=== PATIENT | male | born 1980 | race Hispanic/Latino ===

== ENCOUNTER 2018-06-09 14:17 | Inpatient (IN) | payer BC ==
[~2018-06-09 14:17] MED LIST: Iopamidol 370 76% 100 ML VIAL ONE
[2018-06-09] MEDS ORDERED: Morphine 4 MG/ML Carpuject ONE (14:46)
[2018-06-09 15:01] LABS: Hemoglobin 16.6 g/dL (14.0-18.0); Mean Corpuscular HGB CONC 35.8 g/dL (32.0-36.0); Mean Corpuscular Hemoglobin 30.7 pg (27.0-31.0); Mean Corpuscular Volume 85.6 fL (78.0-98.0); Mean Platelet Volume 8.6 fL (7.4-10.4); Platelet Count 293 thou/uL (130-400); RBC Distribution Width 11.5 % (11.5-14.5); Red Blood Cell (RBC) Count 5.41 mill/uL (4.70-6.10); White Blood Cell (WBC) Count 21.7 thou/uL (4.8-10.8)
[2018-06-09 15:10] LABS: ALT (SGPT) 38 U/L (8-55); AST (SGOT) 22 U/L (5-34); Albumin 4.2 g/dL (3.5-5.0); Alkaline Phosphatase 57 U/L (40-150); Anion Gap 17 mmol/L (10-20); BUN (Urea Nitrogen) 18 mg/dL (8.9-20.6); Bilirubin, Total 0.4 mg/dL (0.2-1.2); CK (CPK) 153 U/L (30-200); CKMB 1.6 ng/mL (0-6.6); Calc. Creatinine Clearance 0 mL/min (70-130); Calcium 9.4 mg/dL (7.8-10.44); Carbon Dioxide 21 mmol/L (22-29); Chloride 104 mmol/L (98-107); Estimated GFR-MDRD 67; Globulin 3.7 g/dL (2.4-3.5); Glucose 132 mg/dL (70-105); Lipase 15 U/L (8-78); Potassium 3.6 mmol/L (3.5-5.1); Protein, Total 7.9 g/dL (6.0-8.3); Sodium 138 mmol/L (136-145); Troponin I Less than 0.010 ng/mL (< 0.028)
[2018-06-09 15:26] LABS: Band 3 % (5-11); Eosinophils 1 % (0-10); Lymphocytes 15 % (21-51); MDiff Complete? YES; Monocytes 6 % (0-10); Neutrophil 74 % (42-75); PLT Morphology Comment Appears Adequate; RBC Morphology Normal
[2018-06-09] MEDS ORDERED: Sodium Chloride 0.9% 0 ML ONE ×2 (15:35→15:37)
[2018-06-09] MEDS ORDERED: cefTRIAXone\\ROCEPHIN 2 GM VIAL ONE (15:35)
--- NOTE | 2018-06-09 15:37 | CT ---
CT ANGIO CHEST WITH CONTRAST: Multiple axial tomograms were obtained through the chest with IV enhancement and a pulmonary angio ph ase following protocol. Multiplanar reconstruction and 3D post processing. INDICATION: Chest pain. Shortness of breath and dyspnea. FINDINGS: There is motion artifact. Suboptimal opacification of the pulmonary arteries. The proximal pulmonar y arteries are adequately opacified and there is no evidence of proximal pulmonary embolus to the seg mental level. Mediastinum unremarkable. The lungs show patchy infiltrate and/or atelectasis in the left lung base with small left effusion. This may be inflammatory and suggest short-term followup. Images through the upper abdomen show evidence of diffuse fatty infiltration of the liver. IMPRESSION: 1. Suboptimal pulmonary angio study; however, no evidence of proximal pulmonary embolus. 2. Patchy infiltrate in the left lung base with small left effusion. POS: [facility]
[2018-06-09 15:49] LABS: Bilirubin Small (Negative); Blood, Urine Negative (Negative); Clarity Clear (Clear); Glucose, Urine (Dipstick) Negative (Negative); Leukocyte Negative (Negative); Nitrite Negative (Negative); Protein, Urine (Dipstick) 30 mg/dL (Neg-Trace); Specific Gravity, Urine 1.015 (1.005-1.030); Urobilinogen 0.2 mg/dL (0.2-1.0)
[2018-06-09 15:57] LABS: Bacteria/HPF 2+ HPF (None Seen); RBC/HPF None Seen HPF (0-3); Squamous Epithelial None Seen HPF (0-3); WBC/HPF 0-3 HPF (0-3)
[2018-06-09] MEDS ORDERED: Azithromycin 500 MG VIAL ONE (16:34)
[2018-06-09] MEDS ORDERED: Milk Of Magnesia 30 ML UDCUP PO PRN (17:23)
[2018-06-09] MEDS ORDERED: Famotidine 20 MG TAB PO PRN (17:23)
[2018-06-09] MEDS ORDERED: Bisacodyl 5 MG TAB PO PRN (17:23)
[2018-06-09] MEDS ORDERED: hydrOXYzine Pamoate 25 mg Capsule PO PRN (17:23)
[2018-06-09] MEDS ORDERED: Docusate 100 MG CAP PO PRN (17:23)
[2018-06-09] MEDS ORDERED: Promethazine 25 MG TAB PO PRN (17:23)
[2018-06-09] MEDS ORDERED: Ondansetron HCl/PF 4 MG/2 ML Vial IVP PRN (17:23)
[2018-06-09] MEDS ORDERED: Benzonatate 100 MG CAP PO PRN (17:23)
[2018-06-09 18:14] VITALS: BMI 45.1
[2018-06-09 18:43] LABS: Troponin I Less than 0.010 ng/mL (< 0.028)
[2018-06-09] MEDS: traMADol HCl 50 MG TAB PO PRN (18:50)
[2018-06-09] MEDS: NS 0.9% w/ 20 MEQ KCL 1,000 ML/1,000 ML BAG IV SCH (18:51)
[2018-06-09] MEDS: Enoxaparin Sodium 40 MG/0.4 ML SYRINGE SC SCH (19:47)
[2018-06-09] MEDS: Acetaminophen 500 MG TAB PO PRN (19:47)
[2018-06-09] MEDS: Diabetic Tussin 200 MG/10 ML UDCUP PO PRN (19:48)
[2018-06-09 21:50] LABS: Troponin I Less than 0.010 ng/mL (< 0.028)
[2018-06-10] MEDS: NS 0.9% w/ 20 MEQ KCL 1,000 ML/1,000 ML BAG IV SCH ×4 (00:07→23:39)
--- NOTE | 2018-06-10 02:56 | HP ---
DATE OF ADMISSION: 06/09/2018 PRIMARY CARE PHYSICIAN: Dr. Mina Noriega. CHIEF COMPLAINT: Shortness of breath. HISTORY OF PRESENT ILLNESS: The patient states that approximately the last 4 days, he has had a left-sided pleuritic chest pain, over the last 2 days has developed some semblance of worsening shortness of breath. No formal fevers. He started feeling ill and presented to the emergency department, found to be tachycardic, tachypneic, and had marginal oxygen saturations 91% in the emergency room. PE was ruled out following positive D-dimer; however, his chest x-ray was suggestive of pneumonia and pleural effusion of the left lower lobe. Patient denies any sputum production. Patient is being worked up on an outpatient basis for obstructive sleep apnea. He is not currently sleeping with any device or oxygen. PAST MEDICAL HISTORY: He has no other past medical history other than obesity. PAST SURGICAL HISTORY: No pertinent surgical history. SOCIAL HISTORY: Lives with spouse who he is a nurse practitioner in [facility]. Patient denies tobacco or alcohol use. PHYSICAL EXAMINATION: VITAL SIGNS: Temperature of 100.4, pulse of 112, oxygen saturation 98% on nasal cannula 2 liters, respiratory rate of 18, blood pressure 131/84. LABORATORY WORK: White blood cell count 21.7, hemoglobin of 16.6, platelet count of 293. D-dimer 1.66. Troponins x3 less than 0.01. BNP of 31. Albumin of 4.2, AST of 22, ALT of 38. Lactic acid of 1.3, glucose of 132, creatinine of 1.26, estimated GFR of 67, potassium of 3.6, sodium of 138. Urinalysis with small ketones, small protein. Blood and urine cultures pending. CTA without any acute cardiopulmonary events. Infiltrate of left lower lung with small left pleural effusion present. Suboptimal study secondary to body habitus. GENERAL: The patient is alert and oriented, no acute distress. HEENT: Normocephalic, atraumatic. Extraocular movements are intact. Nasal canula in place. Oral mucosa is somewhat dry. NECK: Supple. HEART: Tachycardic. LUNGS: Patient is in no respiratory distress with nasal cannula oxygen. ABDOMEN: Protuberant, soft, nontender. Bronchial breath sounds are clear. Bases diminished secondary to body habitus of the lungs bilaterally. EXTREMITIES: Lower extremities without cyanosis or edema. No calf swelling or pain. NEUROLOGIC: The patient is alert and oriented x3, no focal deficits. Speech is normal. ASSESSMENT AND PLAN: The patient is meeting sepsis criteria secondary to community-acquired pneumonia. The patient covered on Rocephin and azithromycin supported by oxygen therapy, given IV fluids. We will trend the patient's vital signs as well as white blood cell count. Continue on IV fluids for rehydration regarding possible acute kidney injury, dehydration, currently on 150 normal saline with 20 mEq of KCl, covering with prophylactic Lovenox at this point in time. If the patient is not improving over the next 24-48 hours, consider repeat CTA as lower bases were not fully properly evaluated; however, no major saddle embolus. No signs of DVT on exam at this point in time. We will follow up cultures when available. We will discuss case with Dr. Mina Noriega take over care on the week. ALEXA
[2018-06-10 05:35] LABS: #Eosinphils 0.1 thou/uL (0.0-0.7); #Lymphocytes 1.8 thou/uL (1.20-3.40); #Monocytes 0.7 thou/uL (0.11-0.59); #Neutrophils 14.1 thou/uL (1.40-6.50); %Eosinophils 0.7 % (0.0-10.0); %Lymphocytes 10.7 % (21.0-51.0); %Monocytes 4.1 % (0.0-10.0); %Neutrophils 84.4 % (42.0-75.0); Hemoglobin 15.5 g/dL (14.0-18.0); Mean Corpuscular HGB CONC 32.7 g/dL (32.0-36.0); Mean Corpuscular Hemoglobin 30.3 pg (27.0-31.0); Mean Corpuscular Volume 92.6 fL (78.0-98.0); Mean Platelet Volume 7.9 fL (7.4-10.4); Platelet Count 291 thou/uL (130-400); RBC Distribution Width 12.4 % (11.5-14.5); Red Blood Cell (RBC) Count 5.12 mill/uL (4.70-6.10); White Blood Cell (WBC) Count 16.7 thou/uL (4.8-10.8)
[2018-06-10 05:38] LABS: ALT (SGPT) 36 U/L (8-55); AST (SGOT) 18 U/L (5-34); Albumin 4.2 g/dL (3.5-5.0); Alkaline Phosphatase 53 U/L (40-150); Anion Gap 12 mmol/L (10-20); BUN (Urea Nitrogen) 9 mg/dL (8.9-20.6); Bilirubin, Total 0.6 mg/dL (0.2-1.2); Calc. Creatinine Clearance 254 mL/min (70-130); Calcium 9.3 mg/dL (7.8-10.44); Carbon Dioxide 23 mmol/L (22-29); Chloride 104 mmol/L (98-107); Estimated GFR-MDRD Greater than 90; Globulin 3.7 g/dL (2.4-3.5); Glucose 172 mg/dL (70-105); Potassium 4.4 mmol/L (3.5-5.1); Protein, Total 7.9 g/dL (6.0-8.3); Sodium 135 mmol/L (136-145)
--- NOTE | 2018-06-10 08:11 | PRG ---
DATE OF SERVICE: 06/10/2018 SUBJECTIVE: The patient is feeling much better this morning. His cough is much improved. OBJECTIVE: VITAL SIGNS: Temperature 98.4, high of 100.7; pulse 96, respirations 28; pulse ox 93 on 2.5 liters O 2. HEART: Regular rate and rhythm. LUNGS: With left basilar rales. ABDOMEN: Soft. EXTREMITIES: No edema. LABORATORY DATA: White count 16.7, down from 21.7, H and H 15 and 45, platelets 291. Electrolytes n ormal. Creatinine 0.81, BUN 9, blood sugar 172, troponin less than 0.010 x3. ASSESSMENT: 1. Left lower lobe pneumonia. 2. Dehydration. 3. Morbid obesity. 4. Snoring disorder. PLAN: 1. Recheck CBC and BMP in the a.m. 2. Possible discharge in the a.m. 3. Discussed diet and exercise. 4. Scheduled for an outpatient sleep apnea test on 06/22. 5. Recheck also a hemoglobin A1c in the a.m.
[2018-06-10] MEDS: traMADol HCl 50 MG TAB PO PRN (13:26)
[2018-06-10] MEDS: cefTRIAXone\\ROCEPHIN 2 GM in Sodium Chloride 0.9% 100 ML IVPB SCH (16:17)
[2018-06-10] MEDS: Azithromycin 500 MG in Sodium Chloride 0.9% 250 ML 250 ML IVPB SCH (17:02)
[2018-06-10] MEDS: Ibuprofen 800 MG TAB PO PRN (17:47)
[2018-06-10] MEDS: Enoxaparin Sodium 40 MG/0.4 ML SYRINGE SC SCH (22:07)
[2018-06-10] MEDS: Diabetic Tussin 200 MG/10 ML UDCUP PO PRN (22:11)
[2018-06-11] MEDS: Ibuprofen 800 MG TAB PO PRN ×3 (01:53→20:38)
[2018-06-11 05:36] LABS: Hemoglobin A1c 6.2 % (4.0-6.0)
[2018-06-11 05:37] LABS: #Eosinphils 0.3 thou/uL (0.0-0.7); #Monocytes 1.4 thou/uL (0.11-0.59); #Neutrophils 10.3 thou/uL (1.40-6.50); %Basophils 0.3 % (0.0-1.0); %Lymphocytes 19.9 % (21.0-51.0); %Monocytes 9.1 % (0.0-10.0); %Neutrophils 68.8 % (42.0-75.0); Hemoglobin 15.1 g/dL (14.0-18.0); Mean Corpuscular Hemoglobin 30.3 pg (27.0-31.0); Mean Corpuscular Volume 91.9 fL (78.0-98.0); Mean Platelet Volume 7.5 fL (7.4-10.4); Platelet Count 297 thou/uL (130-400); RBC Distribution Width 12.4 % (11.5-14.5); Red Blood Cell (RBC) Count 4.98 mill/uL (4.70-6.10); White Blood Cell (WBC) Count 14.9 thou/uL (4.8-10.8)
[2018-06-11 05:52] LABS: Anion Gap 11 mmol/L (10-20); BUN (Urea Nitrogen) 8 mg/dL (8.9-20.6); Calc. Creatinine Clearance 281 mL/min (70-130); Calcium 8.9 mg/dL (7.8-10.44); Carbon Dioxide 22 mmol/L (22-29); Chloride 105 mmol/L (98-107); Estimated GFR-MDRD Greater than 90; Glucose 155 mg/dL (70-105); Potassium 3.9 mmol/L (3.5-5.1); Sodium 134 mmol/L (136-145)
[2018-06-11] MEDS: NS 0.9% w/ 20 MEQ KCL 1,000 ML/1,000 ML BAG IV SCH ×3 (06:15→20:42)
[2018-06-11] MEDS: traMADol HCl 50 MG TAB PO PRN ×2 (07:27→16:12)
--- NOTE | 2018-06-11 07:44 | PRG ---
DATE OF SERVICE: 06/11/2018. SUBJECTIVE: The patient still with moderate cough and left-sided pleuritic chest pain. OBJECTIVE: VITAL SIGNS: Temperature 98.4, pulse 95, respiration 22, pulse ox 95, blood pressure 119/81, pulse o x this morning 93. HEART: Regular rate and rhythm. LUNGS: Relatively clear. ABDOMEN: Soft, still with prominent cough. LABORATORY DATA: White count 14.9, H&H is 15 and 45. Sodium 134, potassium 3.9, creatinine 0.74, bl ood sugar 172, 155. Troponin I less than 0.010 x3. A1c 6.2. ASSESSMENT: 1. Left lower lobe pneumonia, still with prominent cough with a pulse ox at 93 this morning. 2. Dehydration, resolving. 3. Morbid obesity. 4. Snoring disorder. PLAN: 1. Consider monitoring another 24 hours. 2. Discussed weight loss. 3. Followup next week for an outpatient sleep apnea test.
--- NOTE | 2018-06-11 08:45 | PQF ---
CLINICAL DOCUMENTATION IMPROVEMENT CLARIFICATION FORM: ICD-10 Updated PLEASE DO AN ADDENDUM TO THE PROGRESS NOTE WITH ANY DOCUMENTATION UPDATES OR ADDITIONS AND CARRY THROUGH TO DC SUMMARY. THANK YOU. DATE: 06/11/18 ATTN: Dr. Noriega Please exercise your independent, professional judgment in responding to the clarification form. Clinical indicators are provided on the bottom of this form for your review Please check appropriate box(s) to clarify if the following diagnosis has been ruled in or ruled out: MEETING SEPSIS CRITERIA SECONDARY TO COMMUNITY ACQUIRED PNEUMONIA [ ] Ruled in diagnosis [ ] Continue to treat [ ] Resolved [ ] Ruled out diagnosis [ ] Cannot rule out diagnosis [ ] Other diagnosis [ ] Unable to determine In addition, please specify: Present on Admission (POA): [ ] Yes [ ] No [ ] Unable to determine For continuity of documentation, please document condition throughout progress notes and discharge summary. Thank You. CLINICAL INDICATORS - SIGNS / SYMPTOMS / LABS ER RECORD: BP 122/86. PULSE 111-122, RESP 20-24, TEMP 99.8 O2 SAT 2L OXYGEN DX: SEPSIS HYPOXIA, L LOWER LOBE PNA, L PLEURAL EFFUSION H&P: WHITE BLOOD CELL COUNT 21.7 PT IS MEETING SEPSIS CRITERIA SECONDARY TO COMMUNITY ACQUIRED PNEUMONIA RISKS: PN 06/10: MORBID OBESITY; L LOWER LOBE PNEUMONIA. TREATMENT: CPOE 06/09: NS W/ 20 MEQ KCL IV 150MLS/HR CPOE 06/09: ROCEPHIN 2 GM IV CPOE 06/09: ZITHROMAX IV Thank you, Radha (This form is maintained as a part of the permanent medical record) 2014 [employer] All Rights Reserved Radha Vallecillo RN, BSN [email or web address] Office: [phone] [facility] CENTERAnder
[2018-06-11] MEDS: metFORMIN 500 MG TAB PO SCH ×2 (09:20→16:12)
--- NOTE | 2018-06-11 09:20 | RAD ---
PA AND LATERAL CHEST: History: Pneumonia. FINDINGS: The heart size is enlarged. There is a left lower lobe consolidation with accompanying parapneumonic effusion. The right lung is clear. IMPRESSION: Left basilar pneumonia with parapneumonic effusion. POS: OFF
[2018-06-11] MEDS: Diabetic Tussin 200 MG/10 ML UDCUP PO PRN ×2 (09:21→16:18)
[2018-06-11] MEDS: cefTRIAXone\\ROCEPHIN 2 GM in Sodium Chloride 0.9% 100 ML IVPB SCH (16:10)
[2018-06-11] MEDS: Azithromycin 500 MG in Sodium Chloride 0.9% 250 ML 250 ML IVPB SCH (17:17)
[2018-06-11] MEDS: Enoxaparin Sodium 40 MG/0.4 ML SYRINGE SC SCH (20:38)
[2018-06-11] MEDS ORDERED: Phenergan/Codeine 10-6.25mg/5ml UDCUP PO PRN (21:31)
[2018-06-11] MEDS: Acetaminophen 500 MG TAB PO PRN (21:38)
[2018-06-11] MEDS ORDERED: Sodium Chloride 0.9% 1,000 ML IV SCH (21:45)
[2018-06-11] MEDS: Albuterol Sulfate 2.5 mg/3 ml Neb NEB SCH (22:08)
[2018-06-12] MEDS: Albuterol Sulfate 2.5 mg/3 ml Neb NEB SCH ×6 (01:51→21:55)
[2018-06-12] MEDS: NS 0.9% w/ 20 MEQ KCL 1,000 ML/1,000 ML BAG IV SCH ×3 (06:31→17:18)
[2018-06-12] MEDS: Ibuprofen 800 MG TAB PO PRN ×2 (06:31→13:33)
[2018-06-12 06:36] LABS: Band 2 % (5-11); Hemoglobin 15.7 g/dL (14.0-18.0); Lymphocytes 7 % (21-51); MDiff Complete? YES; Mean Corpuscular HGB CONC 33.3 g/dL (32.0-36.0); Mean Corpuscular Volume 93.1 fL (78.0-98.0); Mean Platelet Volume 7.5 fL (7.4-10.4); Monocytes 3 % (0-10); Neutrophil 88 % (42-75); PLT Morphology Comment Appears Adequate; Platelet Count 329 thou/uL (130-400); RBC Distribution Width 12.4 % (11.5-14.5); RBC Morphology Normal; Red Blood Cell (RBC) Count 5.06 mill/uL (4.70-6.10); White Blood Cell (WBC) Count 17.6 thou/uL (4.8-10.8)
--- NOTE | 2018-06-12 07:18 | PRG ---
DATE OF SERVICE: 06/12/2018 SUBJECTIVE: The patient has had a dramatic improvement overnight. Yesterday, he was febrile with sh ortness of breath, chills and was feeling bad. He was tachycardic in the 130s. Last night he was gi nicole a liter bolus of normal saline and AutoPap was started. The patient states that this was the bes t night of sleep he has had in years. This morning he is awake, alert, feeling much better. OBJECTIVE: VITAL SIGNS: Temperature 97.2, pulse 86, respiration 21, pulse ox 94, blood pressure 127/74. HEART: Regular rate and rhythm. LUNGS: Decreased breath sounds on the left base. ABDOMEN: Soft. EXTREMITIES: No edema. LABORATORY: White count 17.6, H&H 15 and 47, 88 segs, 2 bands, platelets 329. Chest x-ray; large left pleural effusion with consolidation. ASSESSMENT: 1. Left lower lobe pneumonia with effusion, a dramatic improvement overnight. 2. Dehydration, resolving. 3. Morbid obesity. 4. Snoring disorder with marked improvement with AutoPap. PLAN: 1. Pulmonary consult this morning. 2. Discussed weight loss again. 3. We will consult Social Service to determine whether an AutoPap can be obtained for an outpatient basis, until he obtains a sleep study scheduled for next week.
[2018-06-12] MEDS: metFORMIN 500 MG TAB PO SCH (08:42)
--- NOTE | 2018-06-12 14:55 | EKG ---
Test Reason : ER INDICATION Blood Pressure : / mmHG Vent. Rate : 123 BPM Atrial Rate : 123 BPM P-R Int : 134 ms QRS Dur : 088 ms QT Int : 316 ms P-R-T Axes : 034 017 -26 degrees QTc Int : 452 ms Sinus tachycardia Minimal voltage criteria for LVH, may be normal variant Possible Inferior infarct , age undetermined Abnormal ECG Confirmed by BACILIO LIZ, ELLIS Rome ([id number]), image editor PAT BOWER ([id number]) on 06/12/2018 2:55:14 PM Referred By: Confirmed By:ELLIS RIBERA MD
[2018-06-12] MEDS ORDERED: Lidocaine 1% (PF) 30 ML VIAL ONE (16:22)
[2018-06-12 17:05] LABS: Fluid, pH - Pleural Fld 7.25
[2018-06-12] MEDS: cefTRIAXone\\ROCEPHIN 2 GM in Sodium Chloride 0.9% 100 ML IVPB SCH (17:16)
[2018-06-12] MEDS: Azithromycin 500 MG in Sodium Chloride 0.9% 250 ML 250 ML IVPB SCH (17:17)
[2018-06-12 17:22] LABS: Body Fluid Source THORACENTESIS FLD; Clarity Cloudy/Turbid (Clear)
[2018-06-12 17:23] LABS: BF Color Yellow; RBC Background Count 0.001; RBC Count-Automated 24000 /cumm; Tube # 1; WBC/NonHematic-Auto 9730 /cumm
[2018-06-12] MEDS: traMADol HCl 50 MG TAB PO PRN (17:24)
[2018-06-12 18:02] LABS: BF Segmented Neutrophils 50 %; Cell Count Non Hematic 24 %; Lymphocytes 26 %
--- NOTE | 2018-06-12 18:43 | CON ---
DATE OF CONSULTATION: 06/12/2018 SERVICE: Pulmonary Medicine. REASON FOR CONSULTATION: Pleural effusion. HISTORY OF PRESENT ILLNESS: The patient is a 38-year-old male with past medical history significant for essentially nothing. He has got morbid obesity. He probably has sleep apnea. He has got an outpatient polysomnogram and is currently pending. 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 He was much more active than he typically is. He thought he pulled some muscles and had some myalgia and malaise for a day or two. He was treating it with intermittent doses of nonsteroidal anti-inflammatory drugs. After 2 days, this persisted and he started having an abrupt onset of pleuritic chest discomfort. He presented to the Emergency Department where CT PE protocol was done. It ruled out a large pulmonary embolism, but there was clearly an infiltrate in the left base. He denies any current fevers, chills, nausea or vomiting. The pain has actually improved a little bit. His breathing has improved since he has been in the hospital. His inflammatory profile is also settled down. That being said, repeat chest x-ray was performed demonstrating a pleural effusion. PAST MEDICAL HISTORY: 1. Morbid obesity. 2. Obstructive sleep apnea, suspected. PAST SURGICAL HISTORY: None. SOCIAL HISTORY: Lives with his spouse who works in our emergency department. Denies any alcohol, tobacco or illicit drug use. He has no exposure to chemicals, dust asbestos or tuberculosis. FAMILY HISTORY: Noncontributory. REVIEW OF SYSTEMS: General, head, ears, eyes, nose, throat, cardiovascular, respiratory, GI, , musculoskeletal, neurologic and skin is negative except as mentioned in the in the HPI. ALLERGIES: No known drug allergies. MEDICATIONS: List of inpatient medications was reviewed. No specific updates were made at this time. PHYSICAL EXAMINATION: VITAL SIGNS: Afebrile currently with T-max of 99.4. His last temperature was at 8:00 p.m. yesterday evening at 101 degrees, pulse 100, blood pressure 144/74 , respirations 18, saturation 92% on room air. GENERAL: The patient is awake and alert, in no apparent distress. LUNGS: Decent air entry in the right lung. Left base has decreased air entry. Crackles are present in the left base. No crackles are present in the right. No rhonchi or wheezing appreciated. HEART: Normal rate, regular. ABDOMEN: Soft, nontender, nondistended. Bowel sounds are positive. MUSCULOSKELETAL: No cyanosis or clubbing. There is no pitting in the bilateral lower extremities. NEUROLOGIC: Grossly nonfocal. LABORATORY DATA: WBC 17.6, hemoglobin 15.7, platelets 329,000. D-dimer 1.66, hemoglobin A1c 6.2, BNP below the assay limit of 10. Basic metabolic profile and liver function studies are otherwise unremarkable. Urinalysis is negative. Blood cultures x2 remain unremarkable. IMAGING DATA: 1. CTA of the chest demonstrates a very small left-sided pleural effusion and very small infiltrate in the left base. 2. Chest x-ray demonstrates significant interval increase in size of the effusion and infiltrate at the left base. Otherwise, there is no acute cardiopulmonary abnormality identified. ASSESSMENT: 1. Community-acquired pneumonia. 2. Pleural effusion. 3. Morbid obesity. 4. Obstructive sleep apnea, suspected. DISCUSSION AND PLAN: We will proceed with a bedside ultrasound. If we see a nice pocket of fluid, thoracentesis will be performed. It will help us to identify the underlying characteristics of this effusion. Hopefully, we are able to drain the entire thing. If we can, a surgical consultation may be indicated. 70 minutes have been devoted to this patient in various activities. I personally reviewed all imaging studies and laboratory data noted within this document. For fifty percent of this time, I was interacting with the patient at the bedside or coordinating care with the care team. For the remainder of the time I was immediately available to the patient in the hospital unit. ALEXA
[2018-06-12] MEDS: Enoxaparin Sodium 40 MG/0.4 ML SYRINGE SC SCH (21:43)
[2018-06-13] MEDS: Albuterol Sulfate 2.5 mg/3 ml Neb NEB SCH ×6 (02:25→21:57)
--- NOTE | 2018-06-13 08:40 | PRG ---
DATE OF SERVICE: 06/13/2018 SUBJECTIVE: The patient continues to improve significantly. He is breathing much easier, sleeping m uch better with the AutoPap. OBJECTIVE: VITAL SIGNS: Temperature 99.0, pulse 87, respirations 22, pulse ox 92, blood pressure 155/94. HEART: Regular rate and rhythm. LUNGS: Increased left basilar breath sounds with rales. Much improved from the past few days. ABDOMEN: Soft, nontender. EXTREMITIES: No edema. LABORATORY: White count 7.6, H&H 15 and 47, status post thoracentesis with 9700 WBCs, 24,000 RBCs, 5 0% segs, 26% lymphs. ASSESSMENT: 1. Left lower lobe pneumonia with effusion. 2. Sepsis with community-acquired pneumonia. 3. Dehydration, resolved. 4. Morbid obesity. 5. Snoring disorder. PLAN: 1. Postop day #1, status post thoracentesis. Cultures pending. 2. The patient is doing significantly better. Desiring to go home. 3. We will discuss with Social Service for possibility of obtaining an AutoPap prior to discharge.
[2018-06-13] MEDS: Ibuprofen 800 MG TAB PO PRN ×2 (09:01→22:09)
--- NOTE | 2018-06-13 09:17 | PRG ---
DATE OF SERVICE: 06/13/2018 SERVICE: Pulmonary Medicine INTERVAL HISTORY: The patient is actually doing pretty well from a respiratory standpoint. He daniel nues to have a little bit of pleuritic chest discomfort, but it is manageable. He denies any shortne ss of breath, nausea or vomiting. Otherwise, there were no events overnight. PHYSICAL EXAMINATION: VITAL SIGNS: Afebrile, pulse 99, blood pressure 129/87, respirations 18, saturation 96% on room air. GENERAL: The patient is awake, alert, no apparent distress. LUNGS: Excellent air entry. There is no prolonged expiratory phase. Rhonchi and crackles are prese nt on the left. There is no wheezing. HEART: Normal rate, regular. ABDOMEN: Soft, nontender, nondistended. Bowel sounds are positive. MUSCULOSKELETAL: No cyanosis or clubbing. No pitting in the bilateral lower extremities. NEUROLOGIC: Grossly nonfocal. LABORATORY: Body fluids are consistent with a neutrophilic exudate. PH is not terribly low, though it is reduced, and glucose falls within the normal limits. IMAGING: Chest x-ray demonstrates near resolution of the left-sided pleural effusion. There has bee n no significant recurrence of the effusion. There is a dense infiltrate in the left base. Overall, it is improved. ASSESSMENT: 1. Community-acquired pneumonia, severe. 2. Uncomplicated parapneumonic pleural effusion. 3. Morbid obesity. 4. Obstructive sleep apnea, suspected DISCUSSION AND PLAN: The patient is doing absolutely wonderful from a respiratory standpoint. We wi ll repeat laboratories tomorrow morning. If the white blood cell count is falling off, and he remain s afebrile, we can convert him over to p.o. Augmentin. I would like to complete a 2 week course of t hat antibiotic which will require him to have about 9 more days on discharge. Pulmonary will continu e to follow along while he remains in house. Ultimately, he will need to follow up in the clinic in 4-6 weeks in the outpatient setting with a repeat chest x-ray to verify the infiltrate has resolved. If it has not, additional investigation may need to be considered. If on the other hand, he has inc reasing fever, chills, or breathing discomfort moving forward, he has been told to notify his physici ans sooner. I will arrange for followup with him in the clinic with me.
--- NOTE | 2018-06-13 10:18 | OP ---
DATE OF SERVICE: 06/12/2018 SERVICE: Pulmonary Medicine PROCEDURE: Left-sided pleural drainage with catheter insertion under ultrasound guidance. CONSENT: Risks and benefits of the procedure were explained to the patient. All questions were answ ered and alternative options explained. STAFF PHYSICIAN: Tony Lao M.D. MEDICATIONS USED: Lidocaine 1% without epinephrine, a total quantity 15 mL. PREOPERATIVE DIAGNOSES: 1. Community-acquired pneumonia. 2. Pleural effusion. POSTPROCEDURE DIAGNOSES: 1. Community-acquired pneumonia. 2. Pleural effusion. DESCRIPTION OF PROCEDURE: A timeout was performed by the procedure team and patient. The patient wa s positively identified using name and date of . The procedure site was marked. Vital sign mon itoring was accomplished by noninvasive hemodynamic monitoring, pulse oximetry, and telemetry. In th e seated position, left posterior hemithorax was examined using ultrasound probe. The diaphragm and pleural fluid were easily identified. The skin was prepped and draped in usual sterile fashion and a nesthetized with 1% lidocaine without epinephrine. A finder needle was inserted in the pleural space with return of cloudy kumar fluid. A pleural drainage catheter was then inserted in the same locati on and a total quantity of 800 mL of the same fluid was withdrawn by syringe pump technique. A sampl e was sent for analysis. Evacuation of fluid was terminated because the fluid stopped coming. At th e end of the procedure, estimated pleural pressures, measured by manometry, was -16 cm of pleural flu id. The intact catheter was withdrawn on exhalation and sterile dressing was applied. The patient h ad stable vitals throughout the entire procedure. ESTIMATED BLOOD LOSS: 2 mL. COMPLICATIONS: None.
--- NOTE | 2018-06-13 10:52 | RAD ---
CHEST TWO VIEWS: History: Thoracentesis. Comparison: Chest radiograph 06-03-18. FINDINGS: Mild size decrease of left layering pleural effusion. There is atelectasis left lower lobe. No pneumo thorax. Cardiac silhouette is similar. IMPRESSION: Mild size decrease left layering pleural effusion. POS: [facility]
[2018-06-13] MEDS: Azithromycin 500 MG in Sodium Chloride 0.9% 250 ML 250 ML IVPB SCH (16:53)
[2018-06-13] MEDS: cefTRIAXone\\ROCEPHIN 2 GM in Sodium Chloride 0.9% 100 ML IVPB SCH (16:53)
[2018-06-13] MEDS: Enoxaparin Sodium 40 MG/0.4 ML SYRINGE SC SCH (20:56)
[2018-06-14] MEDS: Albuterol Sulfate 2.5 mg/3 ml Neb NEB SCH ×4 (02:12→14:44)
[2018-06-14 06:04] LABS: #Basophils 0.1 thou/uL (0.0-0.2); #Eosinphils 0.6 thou/uL (0.0-0.7); #Lymphocytes 4.6 thou/uL (1.20-3.40); #Monocytes 1.4 thou/uL (0.11-0.59); #Neutrophils 12.4 thou/uL (1.40-6.50); %Basophils 0.6 % (0.0-1.0); %Eosinophils 3.1 % (0.0-10.0); %Monocytes 7.2 % (0.0-10.0); %Neutrophils 65.2 % (42.0-75.0); Hemoglobin 14.2 g/dL (14.0-18.0); Mean Corpuscular Hemoglobin 31.5 pg (27.0-31.0); Mean Corpuscular Volume 92.5 fL (78.0-98.0); Platelet Count 388 thou/uL (130-400); RBC Distribution Width 12.4 % (11.5-14.5); Red Blood Cell (RBC) Count 4.52 mill/uL (4.70-6.10)
[2018-06-14 06:18] LABS: Anion Gap 12 mmol/L (10-20); BUN (Urea Nitrogen) 13 mg/dL (8.9-20.6); Calc. Creatinine Clearance 247 mL/min (70-130); Calcium 8.9 mg/dL (7.8-10.44); Carbon Dioxide 25 mmol/L (22-29); Chloride 105 mmol/L (98-107); Estimated GFR-MDRD Greater than 90; Glucose 130 mg/dL (70-105); Potassium 3.6 mmol/L (3.5-5.1); Sodium 138 mmol/L (136-145)
--- NOTE | 2018-06-14 08:26 | PRG ---
DATE OF SERVICE: 06/14/2018 SUBJECTIVE: The patient continues to improve clinically. He is sleeping much better using the AutoP ap. OBJECTIVE: VITAL SIGNS: Temperature 98.1, pulse 93, respirations 16, pulse oximetry 96 on room air, blood press ure 128/81. HEART: Regular rate and rhythm. LUNGS: Improving, increased breath sounds on the left base with rales. ABDOMEN: Soft, nontender. LABORATORY: White count 19.0, H&H 14 and 41. Electrolytes normal. Creatinine 0.85, BUN 13, blood s ugar 130. ASSESSMENT: 1. Postop day #1, status post thoracentesis. 2. Left lower lobe pneumonia with effusion, improving. 3. Sepsis with severe community-acquired pneumonia. 4. Dehydration, resolved. 5. Morbid obesity. 6. Snoring disorder. 7. Impaired glucose tolerance. PLAN: 1. Continue antibiotics. 2. Await cultures from the thoracentesis. 3. Discussed weight loss. 4. Outpatient sleep study. 5. Continue to follow blood sugars on an outpatient basis and will also and will also continue metfo rmin.
[2018-06-14] MEDS ORDERED: Amoxicillin/Potassium Clav 875 MG TAB PO SCH ×2 (12:00→21:00)
--- NOTE | 2018-06-14 12:10 | PRG ---
DATE OF SERVICE: 06/14/2018 SERVICE: Pulmonary Medicine. INTERVAL HISTORY: The patient is doing great from a respiratory standpoint. He denies any current c hest pain, nausea, vomiting, fevers or chills. He actually feels like he is back to normal. He is n ot having any shortness of breath. He has been able to get up and walk around the room without diffi culties. Overall, he feels that things have improved dramatically. He is hoping to go home today. His white blood cell count did tickle up a little bit today. That being said, the differential is no rmalized suggesting that he has probably gotten out of his inflammatory profile. Nursing reports no overnight events. PHYSICAL EXAMINATION: VITAL SIGNS: Afebrile, pulse 70, blood pressure 123/70, respirations 17, saturation 96% on room air. GENERAL: The patient is awake, alert, in no apparent distress. LUNGS: Decent air entry. Rhonchi are present on the left. There are also some crackles. No wheezi ng or prolonged expiratory phase appreciated. HEART: Normal rate, regular. ABDOMEN: Soft, nontender, nondistended. Bowel sounds are positive. MUSCULOSKELETAL: No cyanosis or clubbing. No pitting in the bilateral lower extremities. NEUROLOGIC: Grossly nonfocal. LABORATORY DATA: WBC 19.0, hemoglobin 14.2, platelets 388,000. Basic metabolic profile is essential ly unremarkable. Culture results remain negative to date. ASSESSMENT: 1. Community-acquired pneumonia. 2. Uncomplicated parapneumonic pleural effusion. 3. Morbid obesity. 4. Obstructive sleep apnea, suspected DISCUSSION AND PLAN: The patient return to clinic to see me in 2 weeks in the outpatient setting. I would like for him to go home on 9-10 additional days of Augmentin. IV antibiotics will be disconti nued. If the patient remains in house, pulmonary will continue to follow along, but if all goes well , I will simply see him in the outpatient setting. I did advise him that if he starts having recrude scence in fevers, malaise, myalgia or weakness, he needs to notify the medical community.
[2018-06-14 12:20] VITALS: BP 120/72; TEMP 98.5
--- NOTE | 2018-06-14 17:47 | DIS ---
DATE OF ADMISSION: 06/09/2018 DATE OF DISCHARGE: 06/14/2018 DISCHARGE DIAGNOSES: 1. Sepsis with severe community-acquired pneumonia. 2. Left lower lobe pneumonia with parapneumonic effusion. 3. Postoperative day #2, status post thoracentesis. 4. Dehydration, resolved. 5. Morbid obesity. 6. Snoring disorder. 7. Impaired glucose tolerance. FOLLOWUP: Follow up in 3-[address] Mina Noriega. Follow up Dr. Lao. Follow up for split night sleep study. BRIEF HISTORY: This is a 38-year-old [place] male, morbidly obese who presents with left-side d pleuritic chest pain for 4 days with increasing shortness of breath. No fever initially. He prese nted to the emergency room and was found to be tachycardic, tachypneic, and decreased oxygen saturati ons of approximately 90%-91%. A CT of the chest revealed left lower lobe pneumonia. The patient was seen in January and a sleep study was requested at that time and the patient is yet to do that. HOSPITAL COURSE: The patient was admitted. He was placed on IV steroids. He was placed on IV Rocep hin and Zithromax. He had fever for several days. After several days in the hospital and not improv ing, an AutoPap was initiated and the patient slept dramatically well. He states it was the best sle ep of his life. Immediately following the AutoPap the following day, he felt so much better. His fe delaney resolved. He was up early awake and alert. He strongly desires to take the AutoPap home. The p atient continued to do well. A repeat chest x-ray was performed, which revealed a large left pleural effusion. Dr. Lao was consulted and a thoracentesis was done. Fluid was removed. Preliminary blood cultures and culture of the pleural fluid were unremarkable. Acid fast study is pending. The patient will be discharged at this time. He will follow up with me in the office within a week and h e will follow up with Dr. Lao. A split night sleep study will be performed. The patient more th an likely has sleep apnea.
== END 2018-06-14 15:13 | disposition home or self-care (01) | DRG 871 ==
LOC: SCSER 14:17 → 2NO 18:03
PROVIDERS: ADMIT Family Medicine; ATTEND Family Medicine
PROC: 0W9B3ZZ Drainage of Left Pleural Cavity, Percutaneous Approach (ICD-10-PCS; principal; 2018-06-12)
DX: A41.9 Sepsis, unspecified organism (principal); J18.9 Pneumonia, unspecified organism; Z68.42 Body mass index [BMI] 45.0-49.9, adult; J90 Pleural effusion, not elsewhere classified; E66.01 Morbid (severe) obesity due to excess calories; G47.33 Obstructive sleep apnea (adult) (pediatric); E86.0 Dehydration
CPT/HCPCS: 36415; 71046; 71275; 80048; 80053; 81003; 81015; 82550; 82553; 82945; 83036; 83605; 83615; 83690; 83880; 83986; 84157; 84484; 85007; 85025; 85027; 85060; 85379; 87040; 87070; 87116; 87205; 87206; 88112; 88305; 89051; 93005; 94640; 94660; 96365; 96367; 96375; A4216; J0456; J0696; J1650; J2001; J2270; J2920; J7050; J7611; J7620

== ENCOUNTER 2018-06-22 19:30 | Outpatient (CLI) | payer BC | END 2018-06-22 19:31 | disposition home or self-care (01) | LOC: SLEEPLAB 19:30 | PROVIDERS: ATTEND Family Medicine | DX: G47.33 Obstructive sleep apnea (adult) (pediatric) (principal); R53.83 Other fatigue; E66.9 Obesity, unspecified; R06.83 Snoring; Z68.41 Body mass index [BMI] 40.0-44.9, adult | CPT/HCPCS: 95811 ==

== ENCOUNTER 2018-07-04 11:38 | Outpatient (CLI) | payer OTHER | END 2018-07-04 11:39 | disposition home or self-care (01) | LOC: DTY/OP 11:38 | PROVIDERS: ATTEND Family Medicine | DX: E66.01 Morbid (severe) obesity due to excess calories (principal) | CPT/HCPCS: 97802 ==

== ENCOUNTER 2018-07-09 11:36 | Outpatient (CLI) | payer BC ==
--- NOTE | 2018-07-09 13:14 | RAD ---
CHEST TWO VIEWS: HISTORY: Morbid obesity. Followup pneumonia. COMPARISON: 06/13/2018 CORRELATION: Chest CT from 06/09/2018 demonstrates a focal opacity in the left lower lobe. FINDINGS: There is obscuration of the left heart border. Normal cardiac silhouette. The costophrenic angles a re clear. No pneumothorax or osseous abnormalities. IMPRESSION: Obscuration of left heart border. Correlate for left hilar opacity. Better interrogation with a [facility] st CT is recommended. POS: LUPE
== END 2018-07-09 11:37 | disposition home or self-care (01) ==
LOC: SCSRAD 11:36
PROVIDERS: ATTEND Family Medicine
DX: E66.01 Morbid (severe) obesity due to excess calories (principal); R91.8 Other nonspecific abnormal finding of lung field
CPT/HCPCS: 71046

== ENCOUNTER 2018-07-30 20:30 | Outpatient (CLI) | payer BC | END 2018-07-30 20:31 | disposition home or self-care (01) | LOC: SLEEPLAB 20:30 | PROVIDERS: ATTEND Family Medicine | DX: G47.33 Obstructive sleep apnea (adult) (pediatric) (principal); R53.83 Other fatigue; R06.83 Snoring; E66.9 Obesity, unspecified; Z68.39 Body mass index [BMI] 39.0-39.9, adult | CPT/HCPCS: 95811 ==